=== PATIENT | female | born 1995 | race Caucasian/White ===

== ENCOUNTER 2019-06-04 03:09 | Emergency (ER) | payer OTHER ==
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
[2019-06-04 05:54] VITALS: BP 116/66
== END 2019-06-04 05:54 | disposition home or self-care (01) ==
LOC: ER 03:09
DX: S06.9X9A Unspecified intracranial injury with loss of consciousness of unspecified duration, initial encounter (principal); S00.12XA Contusion of left eyelid and periocular area, initial encounter; S70.311A Abrasion, right thigh, initial encounter; S70.312A Abrasion, left thigh, initial encounter; S80.211A Abrasion, right knee, initial encounter; R51 Headache; R07.1 Chest pain on breathing; R07.89 Other chest pain; V86.69XA Passenger of other special all-terrain or other off-road motor vehicle injured in nontraffic accident, initial encounter
CPT/HCPCS: 70450; 70486; 71046; 72125; 99284